=== PATIENT | female | born 1995 | race Two or more races ===

== ENCOUNTER 2018-02-03 01:06 | Emergency (ER) | payer OTHER ==
[~2018-02-03] VITALS: Ht 160 cm; Wt 99.8 kg
== END 2018-02-03 08:45 | disposition home or self-care (01) ==
LOC: ER 01:06
DX: O99.89 Other specified diseases and conditions complicating pregnancy, childbirth and the puerperium (principal); N73.8 Other specified female pelvic inflammatory diseases

== ENCOUNTER 2018-08-03 14:45 | Inpatient (IN) | payer OTHER ==
[~2018-08-03] VITALS: Ht 160 cm; Wt 113.4 kg
[2018-08-17] MEDS ORDERED: FOLIC ACID0.4 MG PO (12:07)
[2018-08-17] MEDS ORDERED: PRENATABS RX T1 EACH PO (12:07)
[2018-08-20] MEDS ORDERED: PREPLUS CA-FE1 EACH PO (09:09)
[2018-08-20] MEDS ORDERED: IBUPROFEN600 MG PO (09:10)
== END 2018-08-20 10:54 | disposition home or self-care (01) | DRG 788 ==
LOC: LDR 08-17 08:16 → O/R 08-17 14:54 → OB/GYN 08-17 17:14
PROVIDERS: ADMIT Obstetrics & Gynecology
PROC: 4A1HXCZ Monitoring of Products of Conception, Cardiac Rate, External Approach (ICD-10-PCS; 2018-08-17)
PROC: 4A033R1 Measurement of Arterial Saturation, Peripheral, Percutaneous Approach (ICD-10-PCS; 2018-08-17)
PROC: 10D00Z1 Extraction of Products of Conception, Low, Open Approach (ICD-10-PCS; principal; 2018-08-17 14:00)
DX: O82 Encounter for cesarean delivery without indication (principal); Z3A.38 38 weeks gestation of pregnancy; Z37.0 Single live birth

== ENCOUNTER 2018-09-08 13:16 | Emergency (ER) | payer OTHER ==
[~2018-09-08] VITALS: Ht 160 cm; Wt 106.6 kg
[~2018-09-08 13:16] MED LIST: FOLIC ACID0.4 MG PO; IBUPROFEN600 MG PO; PRENATABS RX T1 EACH PO; PREPLUS CA-FE1 EACH PO
[2018-09-08] MEDS ORDERED: BUDESONIDE0.5 MG/2 M IH (17:41)
== END 2018-09-08 20:31 | disposition home or self-care (01) ==
LOC: ER 13:16
DX: J45.998 Other asthma (principal)

== ENCOUNTER 2018-10-06 18:32 | Emergency (ER) | payer OTHER ==
[~2018-10-06] VITALS: Ht 162.6 cm; Wt 107.0 kg
[~2018-10-06 18:32] MED LIST changes: +BUDESONIDE0.5 MG/2 M IH
== END 2018-10-06 20:39 | disposition home or self-care (01) ==
LOC: ER 18:32
DX: R14.3 Flatulence (principal)

== ENCOUNTER 2018-10-10 06:16 | Inpatient (IN) | payer OTHER ==
[~2018-10-10] VITALS: Ht 162.6 cm; Wt 107.0 kg
--- NOTE | 2018-10-10 06:45 | NUR ---
SE RECIBE PTE ALERTA Y ORIENTADO POR KYLIE. PTE REFIERE NO PODER EVACUAR DESDE HACE 2 CEVALLOS Y PRESENTAR DOLOR EN COSTADO DERECHO.
--- NOTE | 2018-10-10 07:54 | NUR ---
PACIENTE ALERTA Y ORIENTADA POR KYLIE ESFERAS. MS. SOLIS ORIENTA A PACIENTE SOBRE PROCEDIMINETO Y TX, REFIERE ENTENDER. EXTRAE MUESTRAS DE LABORATORIO CON MEDIDAS ASEPTICAS Y ADMINISTRA MEDICAMENTOS CHAN ORDEN MEDICA.
--- NOTE | 2018-10-10 15:50 | NUR ---
SE RECIBE PTE ALERTA Y ORIENTADA X3 EN OLIVERIO CON BARANDAS ELEVADAS. PTE REFIERE 0 EN ESCALA DE DOLOR AL MOMENTO. PTE SE OBSERVA CON 0.9NSS BAJANDO A 175ML/HR. PTE EN ESPERA DE CONSULTA CON DR. AZUL Y DR. Allan VACA. POR COLELITHIASIS Y COLESYSTITIS. PTE SE CONTINUA MONITORIANDO POR CAMBIOS.
[2018-10-18] MEDS ORDERED: ULTRACET PO (09:28)
== END 2018-10-18 09:05 | disposition home or self-care (01) | DRG 410 ==
LOC: ER 06:16 → MEDI 17:26 → SEC-K 17:26 → MEDI 20:26 → MEDJ 20:26 → MEDI 10-18 09:05
PROVIDERS: Surgery; ADMIT Internal Medicine
PROC: BW40ZZZ Ultrasonography of Abdomen (ICD-10-PCS; 2018-10-10)
PROC: BF37ZZZ Magnetic Resonance Imaging (MRI) of Pancreas (ICD-10-PCS; 2018-10-10)
PROC: 0FC48ZZ Extirpation of Matter from Gallbladder, Via Natural or Artificial Opening Endoscopic (ICD-10-PCS; 2018-10-15)
PROC: 0FC98ZZ Extirpation of Matter from Common Bile Duct, Via Natural or Artificial Opening Endoscopic (ICD-10-PCS; 2018-10-15)
PROC: BF13YZZ Fluoroscopy of Gallbladder and Bile Ducts using Other Contrast (ICD-10-PCS; 2018-10-15)
PROC: 0DNW4ZZ Release Peritoneum, Percutaneous Endoscopic Approach (ICD-10-PCS; 2018-10-16)
PROC: 0FT44ZZ Resection of Gallbladder, Percutaneous Endoscopic Approach (ICD-10-PCS; principal; 2018-10-16 05:15)
DX: K80.64 Calculus of gallbladder and bile duct with chronic cholecystitis without obstruction (principal); J45.909 Unspecified asthma, uncomplicated; G43.809 Other migraine, not intractable, without status migrainosus

== ENCOUNTER 2019-05-20 15:58 | Outpatient (CLI) | payer OTHER ==
[~2019-05-20 15:58] MED LIST changes: +ULTRACET PO
[2019-05-21] MEDS ORDERED: CEFUROXIME250 MG PO (13:34)
== END 2019-05-21 15:41 | disposition home or self-care (01) ==
LOC: OBS/DEL 15:58
DX: O23.42 Unspecified infection of urinary tract in pregnancy, second trimester (principal)

== ENCOUNTER 2020-03-21 21:16 | Emergency (ER) | payer OTHER ==
[~2020-03-21] VITALS: Ht 160 cm; Wt 117.0 kg
[~2020-03-21 21:16] MED LIST changes: +CEFUROXIME250 MG PO
[2020-03-22] MEDS ORDERED: ZITHROMAX TRI-500 MG PO (01:05)
== END 2020-03-22 01:47 ==
LOC: ER 21:16
DX: J03.80 Acute tonsillitis due to other specified organisms (principal); Z20.828 Contact with and (suspected) exposure to other viral communicable diseases

== ENCOUNTER 2021-07-13 17:20 | Emergency (ER) | payer OTHER ==
[~2021-07-13] VITALS: Ht 162.6 cm; Wt 115.7 kg
[~2021-07-13 17:20] MED LIST changes: +ZITHROMAX TRI-500 MG PO
== END 2021-07-13 20:38 | disposition home or self-care (01) ==
LOC: ER 17:20
DX: K52.9 Noninfective gastroenteritis and colitis, unspecified (principal); Z20.822 Contact with and (suspected) exposure to COVID-19

== ENCOUNTER 2021-11-19 12:26 | Emergency (ER) | payer OTHER ==
[~2021-11-19] VITALS: Ht 160 cm; Wt 115.7 kg
== END 2021-11-19 16:48 | disposition home or self-care (01) ==
LOC: ER 12:26
DX: B34.9 Viral infection, unspecified (principal); J45.909 Unspecified asthma, uncomplicated

== ENCOUNTER 2022-03-13 20:09 | Emergency (ER) | payer OTHER ==
[~2022-03-13] VITALS: Ht 162.6 cm; Wt 113.4 kg
[2022-03-13] MEDS ORDERED: TYLENOL (20:26)
[2022-03-14] MEDS ORDERED: CEPHALEXIN500 MG PO (04:25)
[2022-03-14] MEDS ORDERED: KETO10TA2 PO (04:25)
== END 2022-03-14 04:30 ==
LOC: ER 20:09
DX: N39.0 Urinary tract infection, site not specified (principal); I88.0 Nonspecific mesenteric lymphadenitis

== ENCOUNTER 2022-07-24 09:59 | Emergency (ER) | payer OTHER ==
[~2022-07-24] VITALS: Ht 162.6 cm; Wt 113.4 kg
[~2022-07-24 09:59] MED LIST changes: +CEPHALEXIN500 MG PO; +KETO10TA2 PO; +TYLENOL
== END 2022-07-24 15:44 | disposition home or self-care (01) ==
LOC: ER 09:59
DX: A60.00 Herpesviral infection of urogenital system, unspecified (principal); F41.8 Other specified anxiety disorders